=== PATIENT | female | born 1970 | race Caucasian/White ===

== ENCOUNTER → 2019-06-28 | Outpatient (CLI) | payer SELFPAY ==
--- NOTE | 2019-06-28 13:39 | REP ---
REASON: Knee pain. No trauma. No priors. There is minimal tricompartmental marginal osteophytosis. The compartments are symmetric and well-maintained. IMPRESSION: Minimal degenerative changes. Electronically Signed by Hank Gonzáles DO 06/28/2019 02:16 P
--- NOTE | 2019-06-28 13:40 | REP ---
LEFT ANKLE, FOUR VIEWS: REASON: Tightness. No trauma. No priors. FINDINGS: No acute fracture or destructive osseous lesion. The mortise is intact. Electronically Signed by Hank Gonzáles DO 06/28/2019 02:16 P
== END ==
LOC: M LRY 10:57
PROVIDERS: ATTEND Physician Assistant
DX: M25.572 Pain in left ankle and joints of left foot (principal); M25.462 Effusion, left knee

== ENCOUNTER → 2023-01-04 | Outpatient (REF) | payer MEDICAID, OTHER | LOC: M SFHCWAGY 17:19 | PROVIDERS: ATTEND Nurse Practitioner Family | DX: Z12.4 Encounter for screening for malignant neoplasm of cervix (principal) ==